=== PATIENT | male | born 1970 | race Caucasian/White ===

== ENCOUNTER 2016-10-03 08:32 | Day surgery (SDC) | payer OTHER ==
[2016-10-01 10:53] VITALS: BMI 38.0
[~2016-10-03 08:32] MED LIST: DEXAMETHASONE SOD PHOSPHATE 4 MG/ML 1 ML VIAL IV ONE; FAMOTIDINE 20 MG/2 ML VIAL IV ONE; ONDANSETRON 4 MG/2 ML VIAL IVP ONE
[2016-10-03] MEDS: OXYMETAZOLINE 0.05% NASL SPRAY 15 ML NASAL ONE ×6 (10:08→10:44)
[2016-10-03] MEDS: LACTATED RINGERS 1,000 ML IV SCH ×2 (10:21→11:54)
[2016-10-03 10:22] LABS: Glucose,Whole Blood 81 mg/dL (75-99)
[2016-10-03] MEDS ORDERED: MIDAZOLAM 2 MG/2 ML VIAL ONE (11:51)
[2016-10-03] MEDS ORDERED: ROCURONIUM BROMIDE 10 MG/ML 10 ML VIAL IV ONE (11:51)
[2016-10-03] MEDS ORDERED: SUCCINYLCHOLINE CHLORIDE 100 MG/5 ML SYR IV ONE (11:51)
[2016-10-03] MEDS ORDERED: GLYCOPYRROLATE 0.2 MG/ML 2 ML VIAL ONE (11:51)
[2016-10-03] MEDS ORDERED: NEOSTIGMINE 1 MG/ML 10 ML VIAL ONE (11:51)
[2016-10-03] MEDS ORDERED: fentaNYL (PF) 50 MCG/ML 2 ML AMP ONE (11:51)
[2016-10-03] MEDS ORDERED: LIDOCAINE 1% INJ 10MG/ML (20 ML MDV) ONE (11:51)
[2016-10-03] MEDS ORDERED: DEXAMETHASONE SOD PHOS (MDV) 100 MG/10 ML VIAL ONE (11:51)
[2016-10-03] MEDS ORDERED: PROPOFOL 10 MG/ML 20 ML VIAL IV ONE (11:51)
[2016-10-03] MEDS ORDERED: SODIUM CHLORIDE 0.9% 50 ML with ceFAZolin 2,000 MG IV ONE ×2 (12:11)
[2016-10-03] MEDS ORDERED: LIDOCAINE 1%-EPI 1:100,000 20 ML VIAL SQ ONE ×2 (12:27)
[2016-10-03] MEDS ORDERED: FLUORESCEIN STRIPS 1 MG STRIP MISCELLANE ONE (12:28)
[2016-10-03] MEDS ORDERED: EPINEPHrine 1 MG/ML (MDV) 30 ML VIAL TOPICAL ONE (12:28)
[2016-10-03] MEDS ORDERED: BACITRACIN 500 UNIT/GM OINT 28.4 GM TUBE TOPICAL ONE (13:21)
[2016-10-03] MEDS ORDERED: ONDANSETRON 4 MG/2 ML VIAL IVP ONE (13:42)
--- NOTE | 2016-10-03 13:44 | P.OP ---
Date of Procedure: 10/03/16 Preoperative Diagnosis: Deviated nasal septum Hypertrophy of the bilateral inferior nasal turbinates Left maxillary sinus cyst\polyp Chronic sinusitis Postoperative Diagnosis: Same Procedure(s) Performed: Septoplasty Bilateral submucosal resection of the inferior nasal turbinates with outfracturing compression Bilateral functional endoscopic sinus surgery Removal of left maxillary sinus cyst polyp Anesthesia: DILAN Surgeon: David Novak Estimated Blood Loss (ml): 20 Pathology: other Condition: stable Disposition: PACU Indications for Procedure: This patient's been dealing with chronic sinus problems and has gone through immunotherapy used multiple medications antibiotics etc. Patient has total anosmia and he gets persistent facial pain and pressure in spite of medical therapy. After long discussion we decided to proceed forward with bilateral functional endoscopic sinus surgery correction of the septal deformity and turbinate surgery. All risks, benefits, and alternative therapies were discussed in detail. Consent was obtained and all questions were answered. Operative Findings: Patient was found have a significant deviated nasal septum large cyst N or polyp left maxillary sinus along with evidence of diseased tissue throughout all sinuses. Description of Procedure: This patient was taken to the operative room and placed in the supine position. A general inhalation anesthetic was administered to the patient by the department of anesthesia with a functioning IV line in place. The patient was monitored throughout the entire case by the department of anesthesia. The eyes were taped shut for protection. The patient was placed in a slight reverse Trendelenburg position. The patient had previously utilize Afrin nasal spray preoperatively. The nose was evaluated and the septum lateral nasal wall and inferior turbinates were injected with lidocaine 1% with epinephrine 1 100,000 bilaterally. Approximately 10 minutes were allowed wait for full vasoconstrictive effects to take place. At this point a caudal incision was made over the caudal portion of the left septum down to the mucoperichondrium. A mucoperichondrial flap was elevated on the left side and dissection was carried with use of tunnels posteriorly. We then made a crossover incision through the cartilage to the contralateral side and for the mucoperichondrial flap development was performed to the extent of visualization on the contralateral side. After the cartilage was freed with use of several crosshatching incisions and removal of some redundant strips of septal cartilage, the septum was straightened and placed back in the midline. The septum was sutured fixated to the ovarian groove. Excellent straightening occurred and the septum was visibly straight. Incision was closed with a 40 rapid Vicryl. We utilized a running nonlocking fashion for closure of the incision. A quilting stitch was used to reapproximate the septal flaps with use of a 40 rapid Vicryl. We then entered the nose with a 0 and 30 Dior nathaniel endoscope. Previous to this we did inject the lateral nasal wall and middle turbinate and uncinate process with lidocaine 1% with epinephrine 1 100,000. Approximately 10 minutes were allowed wait for full vasoconstrictive effects to take place. With use of a microdebrider and a pediatric backbiter, we took down the uncinate process bilaterally. We then opened the maxillary sinuses bilaterally. We utilized a microdebrider for this and entered the maxillary sinuses and removed diseased tissue. This was done bilaterally. A large left maxillary polyp/cyst was removed. After the maxillary sinuses were opened and the diseased tissue was removed we entered the ethmoid bulla and with use of a microdebrider and up- biting boss and Blamarthaley, we followed the fovea frontalis through the basal lamella and into the posterior ethmoid air cells and did a total ethmoidectomy. We removed the anterior ethmoid air cells with use of a microdebrider and up- biting boss. After all the anterior ethmoid air cells were removed we did the same in the posterior ethmoid. A total ethmoidectomy was completed in that fashion with removal of all the anterior and posterior ethmoid air cells and diseased tissue. Once the ethmoids cells were all taken down we then entered the sphenoid sinus medially and inferiorly underneath the inferior attachment of the superior turbinate. The sphenoid sinus was opened entered and diseased tissue was removed bilaterally. This was done with a microdebrider and Blakesley. We then entered the frontal sinuses with a giraffe and up-biting Blakesley entered on the agar nasi cells. We open the frontal sinuses and removed sinus tissue that was diseased. We explored the frontal sinuses bilaterally. To summarize all sinuses were open all sinuses were explored and we remove diseased tissue from the sphenoid maxillary and frontal sinuses. Ethmoid sinuses were opened totally. Nasal pore was inserted and minimal bleeding was encountered. We reinspected the skull base there is no signs of any orbital penetration or signs of any intracranial penetration. The sugical site was reinspected after the nasal pore was placed and no bleeding was seen. Intranasal splints were inserted and fixated at the end of the case. We utilized Solis nasal splints. There will be removed and the patient returns to the office. Attention was then paid to the inferior turbinates. The bilateral inferior turbinates were hypertrophic and obstructive. We entered the anterior portion of the inferior turbinates with use of a microdebrider. We remove bone and submucosal elements with use of a microdebrider bilaterally. The inferior turbinates underwent a submucosal resection with removal of submucosal tissue and bone. We obtained a much better and normal in size for breathing. The inferior turbinates were then outfractured and compressed with a Angio[employer] nasal elevator. Excellent airway was obtained and was symmetric bilaterally. No bleeding was encountered.
[2016-10-03 13:52] VITALS: TEMP 97.5
[2016-10-03] MEDS ORDERED: SCOPOLAMINE 1.5MG/72HR PATCH TRANSDERM ONE (14:02)
[2016-10-03] MEDS ORDERED: LACTATED RINGERS 1,000 ML IV ONE (14:07)
[2016-10-03 15:10] VITALS: BP 119/85; PULSE 75; RESP 16
== END 2016-10-03 15:25 | disposition home or self-care (01) ==
LOC: OR 08:32
PROVIDERS: ATTEND Otolaryngology
DX: J34.2 Deviated nasal septum (principal); J34.3 Hypertrophy of nasal turbinates; J33.9 Nasal polyp, unspecified; J32.9 Chronic sinusitis, unspecified; R59.0 Localized enlarged lymph nodes; G47.33 Obstructive sleep apnea (adult) (pediatric); Z99.89 Dependence on other enabling machines and devices; Z79.52 Long term (current) use of systemic steroids; Z79.899 Other long term (current) drug therapy; Z91.041 Radiographic dye allergy status
CPT/HCPCS: 88305; 88300; 30520; 31267; 31255; 31288; 31276; 30140; J0171; J2250; J2710; J2405; J2001; J3010; J0690; J1100; J0330; J2704